=== PATIENT | female | born 1940 | race Caucasian/White ===

== ENCOUNTER 2024-12-30 11:08 | Inpatient (IN) | payer MEDICARE ==
[~2024-12-30] VITALS: Ht 175.3 cm; Wt 94.3 kg
[2024-12-30 11:15] VITALS: BP 160/63
[2024-12-30] MEDS ORDERED: NORVASC5 MG PO (11:22)
[2024-12-30] MEDS ORDERED: DIOVAN320 MG PO (11:23)
[2024-12-30] MEDS ORDERED: CLONIDINE0.3 MG PO (11:23)
[2024-12-30] MEDS ORDERED: ROSUVASTATIN CA40 MG PO (11:30)
[2024-12-30] MEDS ORDERED: HYDR25T PO (11:30)
[2024-12-30] MEDS ORDERED: METFORMIN HYDR500 MG PO (11:31)
[2024-12-30] MEDS ORDERED: CITALOPRAM10 MG PO (11:31)
[2024-12-30] MEDS ORDERED: TRAZODONE50 MG PO (11:32)
[2024-12-30] MEDS ORDERED: LEVOTHYROXINE100 MC2 PO (11:33)
[2024-12-30] MEDS ORDERED: ASPIRIN CHEWABL81 MG PO (11:34)
[2024-12-30 11:57] LABS: BASO # 0.1 10*3/uL (0.0-0.1); BASO % 0.6 % (0.0-1.0); EOS # 0.1 10*3/uL (0.0-0.4); EOS % 1.6 % (1.0-4.0); HEMATOCRIT 32.4 % (37.0-47.0); MEAN CELL VOLUME 89.8 fl (81.0-99.0); MEAN CORPUSCULAR HGB 28.3 pg (27.0-31.0); MEAN CORPUSCULAR HGB CONC 31.5 g/dl (33.0-37.0); MEAN PLATELET VOLUME 9.8 fl (9.6-12.3); MONO # 0.4 10*3/uL (0.1-1.0); MONO % 4.9 % (3.0-9.0); NEUT # 7.7 10*3/uL (2.3-7.9); NEUT % 87.3 % (47.0-73.0); PLATELET COUNT AUTOMATED 187 10*3/uL (130-400); RED BLOOD COUNT 3.61 10*6/uL (4.10-5.10); RED CELL DISTRI WIDTH 15.3 % (0-14.5); WHITE BLOOD COUNT 8.8 10*3/uL (4.8-10.8)
[2024-12-30 12:18] LABS: POTASSIUM 3.6 mmol/L (3.4-5.1); TOTAL PROTEIN 7.7 gm/dL (6.0-8.0)
[2024-12-30] MEDS ORDERED: Albuterol Sulf/Ipratropium 3 ML VIAL NEB ONE (12:20)
[2024-12-30] MEDS ORDERED: Ceftriaxone Sodium 1 GM/10 ML SYR IV ONE (12:25)
[2024-12-30] MEDS ORDERED: AZITHROMYCIN 250 ML IV ONE (12:25)
[2024-12-30 13:26] VITALS: BP 107/64
[2024-12-30] MEDS ORDERED: ACETAMINOPHEN 325 MG TAB PO ONE (13:35)
[2024-12-30] MEDS ORDERED: SODIUM CHLORIDE 0.9% 1,000 ML IV ONE (13:45)
[2024-12-30] MEDS ORDERED: REMDESIVIR 200 MG in SODIUM CHLORIDE 0.9% 210 ML IV ONE (14:30)
[2024-12-30] MEDS ORDERED: DEXTROSE 10 % IN WATER 250 ML IV PRN (14:45)
[2024-12-30] MEDS ORDERED: Ondansetron Hydrochloride 4 MG/2 ML VIAL IV PRN (14:45)
[2024-12-30] MEDS ORDERED: ACETAMINOPHEN 650 MG SUPP R PRN (14:45)
[2024-12-30] MEDS ORDERED: ACETAMINOPHEN 325 MG TAB PO PRN (14:45)
[2024-12-30] MEDS ORDERED: BISACODYL 5 MG TAB PO PRN (14:45)
[2024-12-30 15:26] VITALS: BP 119/50
[2024-12-30 15:50] VITALS: BP 156/55
[2024-12-30] MEDS ORDERED: INSULIN LISPRO 1 UNIT/0.01 ML SQ SCH (16:30)
[2024-12-30 20:00] VITALS: BP 158/72
[2024-12-30] MEDS ORDERED: CLONIDINE HYDROCHLORIDE 0.3 MG PO SCH (22:00)
[2024-12-31] VITALS: BP 111/59
[2024-12-31] MEDS ORDERED: Levothyroxine Sodium 100 MCG TAB PO SCH (06:00)
[2024-12-31 06:30] LABS: BASO % 0.3 % (0.0-1.0); HEMATOCRIT 29.9 % (37.0-47.0); MEAN CELL VOLUME 90.3 fl (81.0-99.0); MEAN CORPUSCULAR HGB 28.4 pg (27.0-31.0); MEAN CORPUSCULAR HGB CONC 31.4 g/dl (33.0-37.0); MEAN PLATELET VOLUME 10.1 fl (9.6-12.3); MONO # 0.9 10*3/uL (0.1-1.0); MONO % 12.3 % (3.0-9.0); NEUT % 70.4 % (47.0-73.0); PLATELET COUNT AUTOMATED 183 10*3/uL (130-400); RED BLOOD COUNT 3.31 10*6/uL (4.10-5.10); RED CELL DISTRI WIDTH 15.5 % (0-14.5); WHITE BLOOD COUNT 7.2 10*3/uL (4.8-10.8)
[2024-12-31 07:03] LABS: POTASSIUM 4.3 mmol/L (3.4-5.1); TOTAL PROTEIN 7.1 gm/dL (6.0-8.0)
[2024-12-31 08:00] VITALS: BP 188/69
[2024-12-31] MEDS ORDERED: methylPREDNISolone sod succ 125 MG VIAL IV ONE (08:30)
[2024-12-31] MEDS ORDERED: ALPRAZolam 0.25 MG TAB PO ONE (08:30)
[2024-12-31] MEDS ORDERED: ALBUTEROL 8 GM INHALER INH SCH (08:41)
[2024-12-31] MEDS ORDERED: CITALOPRAM 20 MG TAB PO SCH (10:00)
[2024-12-31] MEDS ORDERED: HYDROCHLOROTHIAZIDE 25 MG TAB PO SCH (10:00)
[2024-12-31] MEDS ORDERED: Enoxaparin Sodium 40 MG/0.4 ML SYR SC SCH (10:00)
[2024-12-31] MEDS ORDERED: GUAIFENESIN 600 MG TAB ER PO SCH (10:00)
[2024-12-31] MEDS ORDERED: Rosuvastatin Calcium 10 MG TABLET PO SCH (10:00)
[2024-12-31] MEDS ORDERED: methylPREDNISolone sod succ 40 MG VIAL IV SCH (10:00)
[2024-12-31] MEDS ORDERED: amLODIPine besylate 5 MG TAB PO SCH (10:00)
[2024-12-31] MEDS ORDERED: ASPIRIN, CHEWABLE 81 MG TAB PO SCH (10:00)
[2024-12-31] MEDS ORDERED: Losartan Potassium 100 MG TABLET PO SCH (10:00)
[2024-12-31 11:08] VITALS: BP 132/77
[2024-12-31 12:00] VITALS: BP 156/57
[2024-12-31] MEDS ORDERED: REMDESIVIR 100 MG in SODIUM CHLORIDE 0.9% 230 ML IV SCH (14:00)
[2024-12-31 16:00] VITALS: BP 155/63
[2024-12-31 20:00] VITALS: BP 166/68
[2025-01-01] VITALS: BP 181/67
[2025-01-01 04:00] VITALS: BP 158/62
[2025-01-01 06:31] LABS: BASO % 0.1 % (0.0-1.0); HEMATOCRIT 31.4 % (37.0-47.0); MEAN CELL VOLUME 89.2 fl (81.0-99.0); MEAN CORPUSCULAR HGB 28.4 pg (27.0-31.0); MEAN CORPUSCULAR HGB CONC 31.8 g/dl (33.0-37.0); MEAN PLATELET VOLUME 10.1 fl (9.6-12.3); MONO # 0.5 10*3/uL (0.1-1.0); MONO % 5.5 % (3.0-9.0); NEUT % 80.1 % (47.0-73.0); PLATELET COUNT AUTOMATED 186 10*3/uL (130-400); RED BLOOD COUNT 3.52 10*6/uL (4.10-5.10); RED CELL DISTRI WIDTH 15.3 % (0-14.5); WHITE BLOOD COUNT 8.7 10*3/uL (4.8-10.8)
[2025-01-01 06:49] LABS: POTASSIUM 4.3 mmol/L (3.4-5.1)
[2025-01-01 08:00] VITALS: BP 192/72
[2025-01-01 12:00] VITALS: BP 143/108
[2025-01-01] MEDS ORDERED: AZITHROMYCIN 250 ML IV SCH (14:00)
[2025-01-01] MEDS ORDERED: Ceftriaxone Sodium 1 GM,IV 1 EA in SYRINGE INFUSION 10 ML IV SCH (15:00)
[2025-01-01 16:00] VITALS: BP 156/68
[2025-01-01 20:00] VITALS: BP 150/76
[2025-01-01] MEDS ORDERED: MG-AL HYDROXIDE/SIMETICONE 30 ML UDC PO ONE (20:40)
[2025-01-02] VITALS: BP 179/75
[2025-01-02 06:45] LABS: BUN 43 mg/dl (9-23); CHLORIDE 98 mmol/L (98-107); POTASSIUM 4.5 mmol/L (3.4-5.1)
[2025-01-02 08:00] VITALS: BP 189/66
[2025-01-02] MEDS ORDERED: CLONIDINE HYDROCHLORIDE 0.3 MG PO SCH (10:00)
[2025-01-02 12:00] VITALS: BP 193/71
[2025-01-02 16:00] VITALS: BP 150/51
[2025-01-02 20:00] VITALS: BP 147/59
[2025-01-03] VITALS: BP 145/62
[2025-01-03 05:58] LABS: POTASSIUM 4.9 mmol/L (3.4-5.1)
[2025-01-03 06:00] VITALS: BP 179/62
[2025-01-03 06:36] LABS: EOS % 0.1 % (1.0-4.0); HEMATOCRIT 32.8 % (37.0-47.0); MEAN CELL VOLUME 88.4 fl (81.0-99.0); MEAN CORPUSCULAR HGB 28.6 pg (27.0-31.0); MEAN CORPUSCULAR HGB CONC 32.3 g/dl (33.0-37.0); MEAN PLATELET VOLUME 10.5 fl (9.6-12.3); MONO # 0.2 10*3/uL (0.1-1.0); MONO % 2.6 % (3.0-9.0); NEUT # 6.3 10*3/uL (2.3-7.9); NEUT % 80.1 % (47.0-73.0); PLATELET COUNT AUTOMATED 202 10*3/uL (130-400); RED BLOOD COUNT 3.71 10*6/uL (4.10-5.10); RED CELL DISTRI WIDTH 15.2 % (0-14.5); WHITE BLOOD COUNT 7.8 10*3/uL (4.8-10.8)
[2025-01-03 08:00] VITALS: BP 185/68
[2025-01-03 12:00] VITALS: BP 152/60
[2025-01-03] MEDS ORDERED: CLONIDINE0.3 MG PO (12:12)
[2025-01-03] MEDS ORDERED: PREDNISONE10 MG PO (12:12)
[2025-01-03] MEDS ORDERED: MUCINEX1200 M1 PO (12:12)
== END 2025-01-03 15:00 | disposition home or self-care (01) | DRG 871 ==
LOC: ED 11:08 → 4E 12:54 → EDHOLD 12:54 → 4E 15:02
PROVIDERS: Nurse Practitioner Family; Registered Nurse; Student in an Organized Health Care Education/Training Program; ADMIT Internal Medicine; ATTEND Internal Medicine
PROC: XW033E5 Introduction of Remdesivir Anti-infective into Peripheral Vein, Percutaneous Approach, New Technology Group 5 (ICD-10-PCS; 2024-12-30)
PROC: 5A09357 Assistance with Respiratory Ventilation, Less than 24 Consecutive Hours, Continuous Positive Airway Pressure (ICD-10-PCS; principal; 2024-12-31)
DX: A41.9 Sepsis, unspecified organism (principal); J15.69 Pneumonia due to other Gram-negative bacteria; J96.01 Acute respiratory failure with hypoxia; U07.1 COVID-19; E44.0 Moderate protein-calorie malnutrition; R65.20 Severe sepsis without septic shock; E11.65 Type 2 diabetes mellitus with hyperglycemia; I12.9 Hypertensive chronic kidney disease with stage 1 through stage 4 chronic kidney disease, or unspecified chronic kidney disease; E11.22 Type 2 diabetes mellitus with diabetic chronic kidney disease; N18.31 Chronic kidney disease, stage 3a; I25.10 Atherosclerotic heart disease of native coronary artery without angina pectoris; F32.A Depression, unspecified; E03.9 Hypothyroidism, unspecified; Z95.5 Presence of coronary angioplasty implant and graft; Z90.710 Acquired absence of both cervix and uterus; Z81.8 Family history of other mental and behavioral disorders; Z79.82 Long term (current) use of aspirin; Z79.899 Other long term (current) drug therapy; Z68.31 Body mass index [BMI] 31.0-31.9, adult

== ENCOUNTER 2025-07-14 17:36 | Emergency (ER) | payer MEDICARE ==
[~2025-07-14] VITALS: Wt 92.1 kg
[~2025-07-14 17:36] MED LIST: ASPIRIN CHEWABL81 MG PO; CITALOPRAM10 MG PO; CLONIDINE0.3 MG PO; DIOVAN320 MG PO; HYDR25T PO; LEVOTHYROXINE100 MC2 PO; METFORMIN HYDR500 MG PO; MUCINEX1200 M1 PO; NORVASC5 MG PO; PREDNISONE10 MG PO; ROSUVASTATIN CA40 MG PO; TRAZODONE50 MG PO
[2025-07-14] MEDS ORDERED: FUROSEMIDE40 MG PO (18:03)
[2025-07-14] MEDS ORDERED: POTASSIUM CHLO20 ME3 PO (18:04)
[2025-07-14] MEDS ORDERED: diphenhydrAMINE hydrochloride 50 MG/ML VIAL IV ONE (18:20)
[2025-07-14] MEDS ORDERED: Lactated Ringer's Solution 500 ML IV SCH (18:20)
[2025-07-14] MEDS ORDERED: Metoclopramide Hydrochloride 10 MG/2 ML VIAL IV ONE (18:20)
[2025-07-14 19:15] LABS: BASO # 0.1 10*3/uL (0.0-0.1); BASO % 0.5 % (0.0-1.0); EOS # 0.1 10*3/uL (0.0-0.4); EOS % 1.1 % (1.0-4.0); MEAN CELL VOLUME 87.6 fl (81.0-99.0); MEAN CORPUSCULAR HGB 28.8 pg (27.0-31.0); MEAN PLATELET VOLUME 10.3 fl (9.6-12.3); MONO # 0.8 10*3/uL (0.1-1.0); MONO % 6.8 % (3.0-9.0); NEUT # 7.9 10*3/uL (2.3-7.9); NEUT % 71.5 % (47.0-73.0); NUCLEATED RED BLOOD CELL 0.0 % (0.0-0.0); NUCLEATED RED BLOOD CELL 0.0 10*3/uL (0.0-0.0); PLATELET COUNT AUTOMATED 251 10*3/uL (130-400); RED CELL DISTRI WIDTH 16.0 % (0-14.5)
[2025-07-14] MEDS ORDERED: SODIUM CHLORIDE 0.9% 1,000 ML IV ONE (19:35)
[2025-07-14 19:36] LABS: BUN 29.0 mg/dl (9-23); SGPT/ALT 12.0 U/L (5-49)
[2025-07-14 20:20] LABS: BILIRUBIN Negative (Negative); BLOOD Negative (Negative); CLARITY Clear (Clear); COLOR Yellow (Yellow); KETONE Negative (Negative); LEUKO ESTERASE Negative (Negative); NITRITE Negative (Negative); PH 8.0 (4.5-8.0); SPECIFIC GRAVITY 1.010 (1.001-1.030); UROBILINOGEN 0.2 E.U./dl (0.0-1.0)
[2025-07-14 20:34] LABS: EPITHELIAL CELLS 0-2; RBC 0-2 rbc/hpf (0-2); WBC 0-2 wbc/hpf (0-5)
[2025-07-14] MEDS ORDERED: Ondansetron Hydrochloride 4 MG/2 ML VIAL IV ONE (21:30)
== END 2025-07-14 23:25 | disposition home or self-care (01) ==
LOC: ED 17:36
PROVIDERS: Emergency Medicine
DX: R11.10 Vomiting, unspecified (principal); Z20.822 Contact with and (suspected) exposure to COVID-19; R19.7 Diarrhea, unspecified; R07.89 Other chest pain; R51.9 Headache, unspecified; R10.9 Unspecified abdominal pain; Z79.899 Other long term (current) drug therapy; Z79.84 Long term (current) use of oral hypoglycemic drugs; Z90.710 Acquired absence of both cervix and uterus; Z90.49 Acquired absence of other specified parts of digestive tract

== ENCOUNTER → 2025-10-20 | Outpatient (CLI) | payer MEDICARE ==
[~2025-10-20] MED LIST changes: +FUROSEMIDE40 MG PO; +POTASSIUM CHLO20 ME3 PO
== END | disposition home or self-care (01) ==
LOC: CT 12:40
PROVIDERS: ATTEND Internal Medicine Critical Care Medicine
DX: J84.113 Idiopathic non-specific interstitial pneumonitis (principal); J45.20 Mild intermittent asthma, uncomplicated; J34.2 Deviated nasal septum; R05.3 Chronic cough; Z68.33 Body mass index [BMI] 33.0-33.9, adult; K44.9 Diaphragmatic hernia without obstruction or gangrene; I70.0 Atherosclerosis of aorta